=== PATIENT | male | born 1980 | race Caucasian/White ===

== ENCOUNTER 2017-10-29 17:24 | Emergency (ER) | payer OTHER ==
[~2017-10-29] VITALS: Ht 170.2 cm; Wt 65.4 kg
[2017-10-29 19:52] VITALS: BP 120/68
== END 2017-10-29 19:52 | disposition home or self-care (01) ==
LOC: EME 17:24
DX: R60.0 Localized edema (principal); M79.605 Pain in left leg; Z98.890 Other specified postprocedural states
CPT/HCPCS: 93971; 99281; 99284